=== PATIENT | male | born 1940 | race Caucasian/White ===

== ENCOUNTER 2016-07-10 | Outpatient (CLI) | payer MEDICARE, OTHER | END 2016-07-10 17:41 | disposition short-term general hospital (02) | CPT/HCPCS: A0170; A0425; A0427 ==

== ENCOUNTER 2016-09-19 12:56 | Outpatient (CLI) | payer MEDICARE, OTHER | END 2016-09-19 12:57 | disposition home or self-care (01) | DX: I50.9 Heart failure, unspecified (principal); I51.7 Cardiomegaly; I37.1 Nonrheumatic pulmonary valve insufficiency ==

== ENCOUNTER 2017-06-23 01:15 | Outpatient (CLI) | payer MEDICARE, OTHER | END 2017-06-23 01:16 | disposition critical access hospital (66) | LOC: EMS 01:15 | PROVIDERS: ATTEND Surgery | DX: R55 Syncope and collapse (principal); R41.0 Disorientation, unspecified | CPT/HCPCS: A0425; A0427 ==

== ENCOUNTER 2017-06-23 01:45 | Emergency (ER) | payer MEDICARE, OTHER ==
--- NOTE | 2017-06-23 02:09 | ED Physician Documentation ---
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 He sneezed approximately 35 times and then had a syncopal episode. With his syncopal episode the patient was noted to be drooling his tongue hanging out of his mouth and he was completely unresponsive. When medics arrived he continued to be unresponsive and was somewhat combative not allowing transport. Review of Systems Constitutional: denies: Fever, Chills, Myalgias, Fatigue Eyes: denies: Decreased vision Ears: denies: Ear pain Nose: denies: Congestion Throat: denies: Sore throat Cardiac: denies: Chest pain / pressure, Palpitations Respiratory: denies: Dyspnea, Cough GI: denies: Abdominal Pain, Nausea, Vomiting, Constipation, Diarrhea : denies: Dysuria, Frequency Skin: denies: Rash Musculoskeletal: denies: Neck pain, Back pain, Extremity pain Neurologic: denies: Generalized weakness, Focal weakness, Numbness, Headache, Head injury PD PAST MEDICAL HISTORY - Past Medical History Past Medical History: Yes Cardiovascular: Hypertension, High cholesterol, Coronary artery disease, [place], Atrial fibrillation - Present Medications Home Medications: Ambulatory Orders Medication Instructions Recorded Confirmed Acetaminophen 2 tab PO Q6HR PRN 06/23/17 06/23/17 Aspirin 1 tab PO DAILY 06/23/17 06/23/17 Atorvastatin Calcium 1 tab PO QPM 06/23/17 06/23/17 Furosemide [Lasix] 1 tab PO DAILY 06/23/17 06/23/17 Lisinopril 10 mg PO DAILY 06/23/17 06/23/17 Metoprolol Succinate 1 tab PO DAILY 06/23/17 06/23/17 Nitroglycerin 1 tab PO DAILY PRN 06/23/17 06/23/17 Rivaroxaban [Xarelto] 1 tab PO DAILY 06/23/17 06/23/17 - Allergies Allergies/Adverse Reactions: Allergies Allergy/AdvReac Type Severity Reaction Status Date / Time No Known Drug Allergies Allergy Verified 06/23/17 01:51 - Living Situation Living Arrangement: reports: At home - Social History Does the pt smoke?: No Does the pt drink ETOH?: Yes ETOH Use: Liquor - Family History Family history: reports: Non contributory PD ED PE NORMAL - Vitals Vital signs reviewed: Yes (normal ) - General General: Alert and oriented X 3, No acute distress, Well developed/nourished, Other (intoxicated happy 76 y/o male in no distress) - HEENT HEENT: Atraumatic, PERRL, EOMI - Neck Neck: Supple, no meningeal sign - Cardiac Cardiac: RRR, No murmur - Respiratory Respiratory: No respiratory distress, Clear bilaterally - Abdomen Abdomen: Soft, Non tender - Back Back: No CVA TTP, No spinal TTP - Derm Derm: Normal color, Warm and dry, No rash - Extremities Extremities: No deformity, No edema - Neuro Neuro: Alert and oriented X 3, 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, No motor deficit, No sensory deficit, Normal speech Eye Opening: Spontaneous Motor: Obeys Commands Verbal: Oriented GCS Score: 15 - Psych Psych: Normal mood, Normal affect Results - Vitals Vitals: Vital Signs - 24 hr 06/23/17 06/23/17 06/23/17 01:40 02:10 02:24 Temperature 36.3 C L Heart Rate 69 55 L 52 L Respiratory 20 17 15 Rate Blood Pressure 110/62 105/60 108/63 O2 Saturation 96 98 98 06/23/17 06/23/17 06/23/17 02:57 03:08 04:05 Temperature Heart Rate 50 L 61 50 L Respiratory 15 15 15 Rate Blood Pressure 117/60 127/71 126/63 O2 Saturation 96 100 100 06/23/17 04:20 Temperature 36.5 C Heart Rate 60 Respiratory 18 Rate Blood Pressure 126/63 O2 Saturation 98 Oxygen O2 Source Room air - EKG (time done) 0155 Rate: Rate (enter#) (50) Rhythm: Atrial fibrillation Ischemia: ST depression (V6) Compare to prior EKG: Old EKG unavailable Computer interpretation: Agree with computer - Labs Labs: Laboratory Tests 06/23/17 06/23/17 06/23/17 01:52 01:52 01:52 WBC 10.3 RBC 3.86 L Hgb 12.2 L Hct 35.8 L MCV 92.7 MCH 31.7 H MCHC 34.2 RDW 14.1 Plt Count 217 MPV 8.6 Neut # 6.7 H Lymph # 2.3 [place] # 1.1 H Eos # 0.1 Baso # 0.1 Absolute Nucleated RBC 0.00 Nucleated RBC % 0.0 Sodium 138 Potassium 3.5 Chloride 108 Carbon Dioxide 22 Anion Gap 8.0 BUN 18 Creatinine 1.5 H Estimated GFR (MDRD) 46 L Glucose 87 Calcium 7.8 L Total Bilirubin 0.5 AST 17 ALT 13 Alkaline Phosphatase 68 Troponin I < 0.04 Total Protein 6.8 Albumin 3.7 Globulin 3.1 Albumin/Globulin Ratio 1.2 Lipase 30 Urine Color Urine Clarity Urine pH Ur Specific [place] Urine Protein Urine Glucose (UA) Urine Ketones Urine Occult Blood Urine Nitrite Urine Bilirubin Urine Urobilinogen Ur Leukocyte Esterase Ur Microscopic Review Urine Culture Comments Ethyl Alcohol 205.4 06/23/17 06/23/17 03:05 03:50 WBC RBC Hgb Hct MCV MCH MCHC RDW Plt Count MPV Neut # Lymph # [place] # Eos # Baso # Absolute Nucleated RBC Nucleated RBC % Sodium Potassium Chloride Carbon Dioxide Anion Gap BUN Creatinine Estimated GFR (MDRD) Glucose Calcium Total Bilirubin AST ALT Alkaline Phosphatase Troponin I < 0.04 Total Protein Albumin Globulin Albumin/Globulin Ratio Lipase Urine Color LT. YELLOW Urine Clarity CLEAR Urine pH 5.5 Ur Specific [place] <=1.005 Urine Protein NEGATIVE Urine Glucose (UA) NEGATIVE Urine Ketones NEGATIVE Urine Occult Blood NEGATIVE Urine Nitrite NEGATIVE Urine Bilirubin NEGATIVE Urine Urobilinogen 0.2 (NORMAL) Ur Leukocyte Esterase NEGATIVE Ur Microscopic Review NOT INDICATED Urine Culture Comments NOT INDICATED Ethyl Alcohol - Rads (name of study) 1 veiw chest Radiology: Prelim report reviewed (Impression: 1. Cardiomegaly without overt heart failure. 2. Moderate hiatal hernia.), EMP read indepedently, See rad report Procedures - IVC sono (time) 0200 Bedside IVC sono: IVC measures (cm), IVC collapsed c insp (cm) (complete), Dehydration (after 1 liter in still deficiet est 0.5l) PD MEDICAL DECISION MAKING - ED course Complexity details: reviewed old records, reviewed results, re-evaluated patient , considered differential, d/w patient, d/w family ED course: 76 y/o male with a history of CAD and HTN took his night time medications and went to the bar. He did not eat or drink anything during the day and in the bar he had a sneezing paroxysm followed by a period of bradycardia and hypotension that was accompanied by a decreased LOC. He had a prolonged recovery and here in the ED he has recovered entirely. He is intoxicated with a BA of 205. He had dramatic vital sign abnormalities that have since resolved and he wants to go home. Departure - Departure Disposition: 01 Home, Self Care Clinical Impression: Dehydration Syncope Qualifiers: Syncope type: vasovagal syncope Qualified Code(s): R55 - Syncope and collapse Alcohol intoxication Qualifiers: Complication of substance-induced condition: with unspecified complication Qualified Code(s): F10.929 - Alcohol use, unspecified with intoxication, unspecified Condition: Stable Instructions: ED Dehydration, ED Alcohol Intoxication, ED Syncope Vasovagal Follow-Up: Tiffany Snyder PA-C [Primary Care Provider] - Comments: Today it appears you have committed a republican foul. You were found to be dehydrated and intoxicated. Take your medications as prescribed and eat and drink regularly throughout the day. Avoid excessive alcohol. Discharge Date/Time: 06/23/17 04:35
[2017-06-23 02:15] LABS: BASOPHILS # (AUTO) 0.1 10^3/uL (0.0-0.1); BASOPHILS % (AUTO) 0.6 %; EOSINOPHILS # (AUTO) 0.1 10^3/uL (0.0-0.7); HGB - HEMOGLOBIN 12.2 g/dL (14.0-18.0); LYMPHOCYTES # (AUTO) 2.3 10^3/uL (1.5-3.5); LYMPHOCYTES % (AUTO) 22.5 %; MEAN CORPUSCULAR HEMOGLOBIN 31.7 pg (27.0-31.0); MEAN CORPUSCULAR HGB CONC 34.2 g/dL (32.0-36.0); MEAN CORPUSCULAR VOLUME 92.7 fL (80.0-94.0); MEAN PLATELET VOLUME 8.6 fL (7.4-11.4); MONOCYTES # (AUTO) 1.1 10^3/uL (0.0-1.0); MONOCYTES % (AUTO) 10.9 %; NEUTROPHILS # (AUTO) 6.7 10^3/uL (1.5-6.6); PLT - PLATELET COUNT 217 10^3/uL (130-450); RED BLOOD COUNT 3.86 10^6/uL (4.70-6.10); RED CELL DISTRIBUTION WIDTH 14.1 % (12.0-15.0); WHITE BLOOD COUNT 10.3 x10^3/uL (4.8-10.8)
[2017-06-23 02:24] LABS: ALBUMIN 3.7 g/dL (3.2-5.5); ALBUMIN/GLOBULIN RATIO 1.2 (1.0-2.2); BILIRUBIN,TOTAL 0.5 mg/dL (0.2-1.0); CALCIUM 7.8 mg/dL (8.5-10.3); CREATININE 1.5 mg/dL (0.6-1.2); TOTAL PROTEIN 6.8 g/dL (6.7-8.2)
--- NOTE | 2017-06-23 03:15 | XRAY Preliminary Report ---
Exam: XR CHEST 1 VIEW X-RAY IMPRESSION: 1. Cardiomegaly without overt heart failure. 2. Moderate hiatal hernia. [facility] SITE ID: [id number]
[2017-06-23 03:24] LABS: BILIRUBIN,URINE NEGATIVE (NEGATIVE); GLUCOSE, URINE (UA) NEGATIVE (NEGATIVE); KETONES,URINE (UA) NEGATIVE (NEGATIVE); LEUKOCYTE ESTERASE, URINE NEGATIVE (NEGATIVE); NITRITE,URINE NEGATIVE (NEGATIVE); OCCULT BLOOD,URINE NEGATIVE (NEGATIVE); PH,URINE 5.5 PH (5.0-7.5); PROTEIN,URINE NEGATIVE (NEGATIVE); UROBILINOGEN,URINE 0.2 (NORMAL) E.U./dL (NORMAL)
[2017-06-23 03:25] LABS: CLARITY,URINE CLEAR (CLEAR)
--- NOTE | 2017-06-23 03:33 | XRAY Report ---
EXAM: CHEST RADIOGRAPHY EXAM DATE: 06/23/2017 02:32 AM. CLINICAL HISTORY: Syncope/bradycardia. COMPARISON: None. TECHNIQUE: 1 view. FINDINGS: Lungs/Pleura: No focal opacities evident. No pleural effusion. No pneumothorax. Mediastinum: Mild cardiomegaly. Moderate hiatal hernia. Other: None. IMPRESSION: 1. Cardiomegaly without overt heart failure. 2. Moderate hiatal hernia. [facility] Referring Provider Line: [phone] SITE ID: [id number]
[2017-06-23 04:10] VITALS: BP 126/63
== END 2017-06-23 04:35 | disposition home or self-care (01) ==
LOC: ED 01:45
DX: E86.0 Dehydration (principal); R55 Syncope and collapse; F10.929 Alcohol use, unspecified with intoxication, unspecified; I48.91 Unspecified atrial fibrillation; Y90.7 Blood alcohol level of 200-239 mg/100 ml; I10 Essential (primary) hypertension; E78.00 Pure hypercholesterolemia, unspecified; I25.10 Atherosclerotic heart disease of native coronary artery without angina pectoris; I25.2 Old myocardial infarction; Z79.82 Long term (current) use of aspirin
CPT/HCPCS: 36415; 71045; 80053; 81003; 83690; 84484; 85025; 93005; 99284; 99285; G0480; 80320; 81001; 87086

== ENCOUNTER 2017-12-09 12:29 | Outpatient (CLI) | payer MEDICARE, OTHER | END 2017-12-09 12:30 | disposition home or self-care (01) | LOC: DI 12:29 | PROVIDERS: ATTEND Internal Medicine Cardiovascular Disease | DX: I48.91 Unspecified atrial fibrillation (principal); I51.7 Cardiomegaly; I27.20 Pulmonary hypertension, unspecified | CPT/HCPCS: 93306 ==

== ENCOUNTER 2018-04-25 10:58 | Outpatient (CLI) | payer MEDICARE, OTHER ==
[2018-04-25 11:50] LABS: ALBUMIN/GLOBULIN RATIO 1.1 (1.0-2.2); ALKALINE PHOSPHATASE 84 IU/L (42-121); ALT ALANINE AMINOTRANSFERASE 14 IU/L (10-60); AST ASPARTATE AMINOTRANSFERASE 21 IU/L (10-42); BILIRUBIN,TOTAL 1.1 mg/dL (0.2-1.0); BUN - BLOOD UREA NITROGEN 31 mg/dL (6-20); CALCIUM 8.4 mg/dL (8.5-10.3); CARBON DIOXIDE - CO2 25 mmol/L (21-32); CHLORIDE 102 mmol/L (101-111); CHOL/HDL RATIO 1.9 (<5.0); CHOLESTEROL 120 mg/dL; CREATININE 1.4 mg/dL (0.6-1.2); GFR - MDRD 49 (>89); GLUCOSE 124 mg/dL (70-100); HDL CHOLESTEROL 64 mg/dL; LDL CHOLESTEROL,CALCULATED 47 mg/dL; LDL/HDL RATIO 0.7 (<3.6); SODIUM 136 mmol/L (135-145); TOTAL PROTEIN 7.6 g/dL (6.7-8.2); VLDL CHOLESTEROL 9 mg/dL
== END 2018-04-25 10:59 | disposition home or self-care (01) ==
LOC: LAB 10:58
PROVIDERS: ATTEND Internal Medicine Cardiovascular Disease
DX: Z79.899 Other long term (current) drug therapy (principal)
CPT/HCPCS: 36415; 80053; 80061; 83721

== ENCOUNTER 2019-09-04 16:25 | Day surgery (SDC) | payer MEDICARE, OTHER ==
[2019-09-04] MEDS ORDERED: TETANUS/DIPHTHERIA/PERTUSSIS 0.5 ML SYRINGE IM ONE (16:32)
[2019-09-04] MEDS ORDERED: ceFAZolin 2 GM in SODIUM CHLORIDE 0.9% 100ML 100 ML IV STA (16:35)
--- NOTE | 2019-09-04 16:35 | ED Physician Documentation ---
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 Pain is minimal.) Review of Systems Ten Systems: 10 systems reviewed and negative Constitutional: reports: Reviewed and negative Nose: reports: Reviewed and negative Throat: reports: Reviewed and negative Cardiac: reports: Reviewed and negative PD PAST MEDICAL HISTORY - Past Medical History Cardiovascular: Hypertension, High cholesterol, Coronary artery disease, [place], Atrial fibrillation - Past Surgical History Past Surgical History: Yes Cardiovascular: Cardiac catheterization - Present Medications Home Medications: Ambulatory Orders Medication Instructions Recorded Confirmed Acetaminophen 2 tab PO Q6HR PRN 06/23/17 06/23/17 Furosemide [Lasix] 1 tab PO DAILY 06/23/17 06/23/17 Metoprolol Succinate 50 mg PO BID 06/23/17 09/04/19 Nitroglycerin 1 tab PO DAILY PRN 06/23/17 06/23/17 Rivaroxaban [Xarelto] 20 mg PO QDDINNER 06/23/17 09/04/19 lisinopriL [Lisinopril] 10 mg PO DAILY 06/23/17 06/23/17 Aspirin [Aspirin EC] 81 mg PO DAILY 09/04/19 09/04/19 Atorvastatin Calcium [Lipitor] 80 mg PO QPM 09/04/19 09/04/19 - Allergies Allergies/Adverse Reactions: Allergies Allergy/AdvReac Type Severity Reaction Status Date / Time No Known Drug Allergies Allergy Verified 09/04/19 17:38 - Social History Does the pt smoke?: No Smoking Status: Never smoker Does the pt drink ETOH?: Yes Does the pt have substance abuse?: No - Immunizations Immunizations are current?: Yes - POLST Patient has POLST: No PD ED PE NORMAL - Vitals Vital signs reviewed: Yes - General General: Alert and oriented X 3, No acute distress - HEENT HEENT: PERRL, EOMI - Neck Neck: Supple, no meningeal sign, No bony TTP - Cardiac Cardiac: No gallop, No rub, Other (irreg/irreg) - Respiratory Respiratory: No respiratory distress, Clear bilaterally - Abdomen Abdomen: Normal bowel sounds, Soft, Non tender - Back Back: No CVA TTP, No spinal TTP - Derm Derm: Normal color, Warm and dry - Extremities Extremities: No edema, No calf tenderness / cord, Other (He is almost complete amputation of the fourth finger of the right hand at the level of the DIP and a crushed fifth distal phalanx with nailbed laceration.) - Neuro Neuro: Alert and oriented X 3, Normal speech - Psych Psych: Normal mood, Normal affect Results - Vitals Vitals: Vital Signs - 24 hr 09/04/19 09/04/19 09/04/19 16:35 16:58 18:00 Temperature 36.2 C L Heart Rate 80 82 80 Respiratory 16 16 16 Rate Blood Pressure 188/92 H 188/82 H 175/86 H O2 Saturation 98 95 95 Oxygen O2 Source Room air - EKG (time done) 1724 Rate: Rate (enter#) (70) Rhythm: Atrial fibrillation Rice: LAD Intervals: Normal MO Ischemia: Q waves (anterior), Non specific changes (minor STD II/lat) Computer interpretation: Agree with computer - Labs Labs: Laboratory Tests 09/04/19 09/04/19 09/04/19 16:45 17:30 17:30 WBC 10.0 RBC 4.48 L Hgb 13.7 L Hct 43.0 MCV 96.0 H MCH 30.6 MCHC 31.9 L RDW 14.0 Plt Count 213 MPV 11.8 H Neut # (Auto) 6.6 Lymph # (Auto) 2.4 [place] # (Auto) 0.8 Eos # (Auto) 0.1 Baso # (Auto) 0.0 Absolute Nucleated RBC 0.00 Nucleated RBC % 0.0 PT INR D-Dimer Sodium 139 Potassium 3.7 Chloride 106 Carbon Dioxide 22 Anion Gap 11.0 BUN 26 H Creatinine 1.0 Estimated GFR (MDRD) 72 L Glucose 104 H Calcium 8.5 B-Natriuretic Peptide 232 H 09/04/19 09/04/19 17:30 17:30 WBC RBC Hgb Hct MCV MCH MCHC RDW Plt Count MPV Neut # (Auto) Lymph # (Auto) [place] # (Auto) Eos # (Auto) Baso # (Auto) Absolute Nucleated RBC Nucleated RBC % PT 16.6 H INR 1.5 H D-Dimer < 200.0 L Sodium Potassium Chloride Carbon Dioxide Anion Gap BUN Creatinine Estimated GFR (MDRD) Glucose Calcium B-Natriuretic Peptide - Rads (name of study) Right hand 3 view x-ray Radiology: EMP read contemporaneously (Comminuted fracture of the fourth distal phalanx with near amputation, also a little bit of bone loss of the fifth digit as well.) PD MEDICAL DECISION MAKING - ED course ED course: 79-year-old gentleman with near amputations of the fourth and fifth fingers of the right hand. I do not think the tips would respond to just suturing them back in place and the on-call orthopedic surgeon, Dr. Aguilar was consulted and will take him to the OR for revision of the amputations and closure. He reque sted that we talk with the hospitalist regarding his comorbidities for preop consult and this was done. Departure - Departure Disposition: ED Transfer to [facility] Discharge Date/Time: 09/04/19 18:25
[2019-09-04 17:02] LABS: BASOPHILS % (AUTO) 0.3 %; EOSINOPHILS # (AUTO) 0.1 10^3/uL (0.0-0.7); HGB - HEMOGLOBIN 13.7 g/dL (14.0-18.0); LYMPHOCYTES # (AUTO) 2.4 10^3/uL (1.5-3.5); LYMPHOCYTES % (AUTO) 23.8 %; MEAN CORPUSCULAR HEMOGLOBIN 30.6 pg (27.0-31.0); MEAN CORPUSCULAR HGB CONC 31.9 g/dL (32.0-36.0); MEAN PLATELET VOLUME 11.8 fL (7.4-11.4); MONOCYTES # (AUTO) 0.8 10^3/uL (0.0-1.0); MONOCYTES % (AUTO) 8.3 %; NEUTROPHILS # (AUTO) 6.6 10^3/uL (1.5-6.6); NEUTROPHILS % (AUTO) 66.1 %; PLT - PLATELET COUNT 213 10^3/uL (130-450); RED BLOOD COUNT 4.48 10^6/uL (4.70-6.10)
--- NOTE | 2019-09-04 17:12 | XRAY Report ---
Reason: hand inj Procedure Date: 09/04/2019 Accession Number: [id number] / [id number] Procedure: XR - Hand 3 View RT CPT Code: Final Report FULL RESULT: EXAM: RIGHT HAND RADIOGRAPHY EXAM DATE: 09/04/2019 05:04 PM. CLINICAL HISTORY: Hand inj. COMPARISON: None. TECHNIQUE: 3 views. FINDINGS: Bones: Fourth digit distal phalanx comminuted fracture with separation of soft tissue and bone by 1.6 cm. Joints: Degenerative changes first SKILLED NURSING, first MCP, PIP and DIP joints No subluxations. Soft Tissues: Soft tissue laceration with near amputation fourth digit. Distal peripheral vascular calcifications IMPRESSION: Fourth digit distal phalanx comminuted fracture with separation of soft tissue and bone by 1.6 cm. Near amputation [facility]
--- NOTE | 2019-09-04 17:31 | CONSULTATION NOTE ---
Referring Provider Name of Referring Provider:: Eric Cates MD Consult Date: 09/04/19 Chief Complaint - Chief Complaint Chief Complaint: Asked to evaluate right hand fourth and fifth digit distal partial amputati History of Present Illness - History Obtained From History obtained from: Emergency medicine physician and patient - History of Present Illness HPI Comment/Other: Bill is a 79-year-old [id number] male in his usual state of health until today when he reportedly got his right fourth and fifth digits of his hand caught in the tailgate of his truck while shutting it. He has history of atrial fibrillation. He came into the emergency room was found to have this injury and orthopedic consultation was sought. Patient denies other significant injury at this time. He denies cardiovascular or other systemic symptoms and only complains of his right fourth and fifth digits. Chart review he does have a history of coronary artery disease [place] and hypercholesterolemia as well. History - Past Medical History Cardiovascular: reports: Hypertension, High cholesterol, Coronary artery disease, [place], Atrial fibrillation MRSA Hx?: No - Past Surgical History Cardiovascular: reports: Cardiac catheterization - POLST Patient has POLST: No Meds/Allgy - Home Medications Home Medications: Ambulatory Orders Medication Instructions Recorded Confirmed Acetaminophen 2 tab PO Q6HR PRN 06/23/17 06/23/17 Aspirin 1 tab PO DAILY 06/23/17 06/23/17 Atorvastatin Calcium 1 tab PO QPM 06/23/17 06/23/17 Furosemide [Lasix] 1 tab PO DAILY 06/23/17 06/23/17 Metoprolol Succinate 1 tab PO DAILY 06/23/17 06/23/17 Nitroglycerin 1 tab PO DAILY PRN 06/23/17 06/23/17 Rivaroxaban [Xarelto] 1 tab PO DAILY 06/23/17 06/23/17 lisinopriL [Lisinopril] 10 mg PO DAILY 06/23/17 06/23/17 - Allergies Allergies/Adverse Reactions: Allergies Allergy/AdvReac Type Severity Reaction Status Date / Time No Known Drug Allergies Allergy Verified 06/23/17 01:51 Exam - Vital Signs Vital Signs: Vital Signs x48h Temp Pulse Resp BP Pulse Ox 09/04/19 16:58 82 16 188/82 H 95 09/04/19 16:35 36.2 C L 80 16 188/92 H 98 - Physical Exam Comments/Other: Patient's well-developed well-nourished 79-year-old gentleman cooperative with the exam patient's right upper extremity demonstrates partial injury to both fourth and fifth digits with at all but complete amputation of the distal approximately half of the distal phalanx of the fourth digit and significant crush of an oblique section of the distal aspect of the fifth distal phalanx involving bony injury as well as well as a great majority of the volar pulp. The pulp of the fifth digit that remains is purplish martinez and hue at a relatively distinct oblique angle versus the more proximal skin with good capillary refill. The fifth digit injury goes obliquely off across the nailbed. The fourth digit shows near complete avulsion of the entire nail bed. Patient able to flex and extend more proximally to that with some guarding and pain.Bone is readily visible on both injuries distally. Conclusion/Plan - Diagnosis Diagnosis: Right hand fourth and fifth digit partial distal tip amputations - Plan Plan: Bill is a 79-year-old [id number] male with a partial amputation to his right fourth and fifth digit tips. Talked about the severity of the injuries and the fact that he will lose part of his digits with and without operative intervention. I recommended emergent operative intervention for debridement irrigation and partial amputation to minimize but only short-term risks such as infection but long-term risks as well. We talked about the fact that despite what we do today he still may need additional procedures in the future. He went to risk benefits alternatives of operative and nonoperative treatment occluding but not limited to infection wound problems nerve or blood vessel injury bleeding blood clot blood clot embolus tourniquet complications positioning complications anesthetic complications including but not limited to major cardiovascular neurovascular complications even . He is at increased risk given his cardiac history as well as potential for respiratory illness during the coronavirus pandemic. He would also be at increased risk given his age. Talked about the above and he verbalized their understanding above verbalized wish to proceed with operative intervention. Informed consent is given. Patient will have appropriate preanesthetic medical risk stratification and optimization as necessary and be taken to emergently pending the above to the OR. Patient's questions were answered to verbalize agreement satisfaction the above plan. Proposed procedure right fourth and fifth digit debridement irrigation completion amputation partial, with possible closure. - Lab Results Fish Bones: 09/04/19 16:45 - Diagnostic Imaging Results Diagnostic Imaging Results Comments: Patient had right hand x-rays taken today showing avulsion distal aspects of fourth and fifth distal phalanges. pls see formal report.
--- NOTE | 2019-09-04 17:35 | CONSULTATION NOTE ---
Referring Provider Name of Referring Provider:: Dr. Aguilar Consult Date: 09/04/19 Chief Complaint - Chief Complaint Chief Complaint: injury of right pinky and ring finger caught in tailgate History of Present Illness - Admitted From Admitted From:: ER - History Obtained From History obtained from: pt - History of Present Illness HPI Comment/Other: This is a 79-yrs-old male with a PMH significant for HTN, HLD, chronic Afib with Xarelto, [place], CAD, who present ER complain of right pinky and ring finger injury. pt report his right pinky and ring finger was caught in tailgate today. Dr. Aguilar is the surgeon to plan to have surgery for pt. Hospitalist team was asked to consult for assessment of pt's cardiac risk for the procedure. pt report today he did not take his medications yet, he usually take his meds in the night. he report he had [place] on 2018, afib and he took Xarelto for. He denies chest pain, shortness of breath, palpitations. History - Past Medical History Cardiovascular: reports: Hypertension, High cholesterol, Coronary artery disease, [place], Atrial fibrillation MRSA Hx?: No - Past Surgical History Cardiovascular: reports: Cardiac catheterization - POLST Patient has POLST: No Meds/Allgy - Home Medications Home Medications: Ambulatory Orders Medication Instructions Recorded Confirmed Acetaminophen 2 tab PO Q6HR PRN 06/23/17 06/23/17 Furosemide [Lasix] 1 tab PO DAILY 06/23/17 06/23/17 Metoprolol Succinate 50 mg PO BID 06/23/17 09/04/19 Nitroglycerin 1 tab PO DAILY PRN 06/23/17 06/23/17 Rivaroxaban [Xarelto] 20 mg PO QDDINNER 06/23/17 09/04/19 lisinopriL [Lisinopril] 10 mg PO DAILY 06/23/17 06/23/17 Aspirin [Aspirin EC] 81 mg PO DAILY 09/04/19 09/04/19 Atorvastatin Calcium [Lipitor] 80 mg PO QPM 09/04/19 09/04/19 - Allergies Allergies/Adverse Reactions: Allergies Allergy/AdvReac Type Severity Reaction Status Date / Time No Known Drug Allergies Allergy Verified 09/04/19 17:38 Review of Systems - Constitutional Constitutional: denies: Fatigue, Fever, Chills, Weakness - Eyes Eyes: denies: Pain, Blurred vision, Spots in vision, Field loss, Vision loss - Ears, Nose & Throat Ears, Nose & Throat: denies: Ear pain, Nosebleeds, Nasal congestion - Cardiovascular Cariovascular: reports: Irregular heart rate. denies: Palpitations, Chest pain, Edema, Lightheadedness, Syncope, Exertional dyspnea, Decr. exercise tolerance, Orthopnea - Respiratory Respiratory: denies: Cough, Sputum production, Wheezing, Snoring, Hemoptysis, Orthopnea, SOB at rest, SOB with exertion - Gastrointestinal Gastrointestinal: denies: Abdominal pain, Diarrhea, Black stools, Bloody stools, Nausea, Vomiting - Genitourinary Genitourinary: denies: Dysuria - Musculoskeletal Musculoskeletal: reports: Muscle pain, Muscle aches, Limited range of motion - Integumentary Integumentary: denies: Rash - Neurological Neurological: denies: General weakness, Focal weakness, Headache, Dizziness, Numbness, Abnormal gait, Seizures, Incoordination, Slurred speech - Psychiatric Psychiatric: denies: Suicidal, Delusions, Hallucinations, Homicidal - Endocrine Endocrine: denies: Polyuria - Hematologic/Lymphatic Hematologic/Lymphatic: denies: Anemia Exam - Vital Signs Vital Signs: Vital Signs x48h Temp Pulse Resp BP Pulse Ox 09/04/19 16:58 82 16 188/82 H 95 09/04/19 16:35 36.2 C L 80 16 188/92 H 98 - Physical Exam General Appearance: positive: No acute distress, Alert. negative: Lethargic Eyes Bilateral: positive: Normal inspection ENT: positive: ENT inspection nml Neck: positive: Nml inspection, Thyroid nml, Trachea midline. negative: Stiff neck, Tracheal deviation Respiratory: positive: Chest non-tender, No respiratory distress. negative: Wheezes, Rales, Rhonchi Cardiovascular: positive: No murmur, No gallop, Irregularly irregular. negative: Regular rate & rhythm, Extrasystoles, Tachycardia, Bradycardia, Systolic murmur, Diastolic murmur Peripheral Pulses: positive: 2+ Abdomen: positive: Non-tender, No organomegaly, Nml bowel sounds. negative: Tenderness, Guarding, Rebound Back: positive: Nml inspection Skin: positive: Color nml, Warm, Dry. negative: Cyanosis, Diaphoresis, Pallor Extremities: negative: Calf tenderness Neurologic/Psychiatric: positive: Oriented x3, Sensation nml, Mood/affect nml. negative: Weakness, Sensory loss, Facial droop, Slurred/abnml speech, Depressed mood/affect Conclusion/Plan - Plan Plan: 1, pt has hx of [place], CAD, Afib, HTN and HLD, and now with slight elevated BNP. The revised cardiac risk index for pre-operative risk by Hilton index indicates 10.1% for 30 days risk of , [place], or cardiac arrest, class III risk. EKG reveals afib with HR 70. ECHO is pending, order PT/INR tele monitor nitro SL PRN 2, HTN. Pt's BP is 175/86, HR is 80 now. plan: hydralazine PRN, start on Lisinopril 3, NPO except meds, start IVF of NS on 75cc/h. 4, pain control: Morphine PRN 5, reconcile home meds after pharmacy confirmed - Lab Results Fish Bones: 09/04/19 16:45 09/04/19 17:30
[2019-09-04] MEDS ORDERED: LIDOCAINE 1%-EPI 1:100000 20 ML MDV ONE (17:39)
[2019-09-04] MEDS ORDERED: BUPIVACAINE 0.25% PF 30 ML VIAL ONE (17:39)
--- NOTE | 2019-09-04 17:39 | ANESTHESIA ---
Pre-Anesthesia VS, & Labs - Diagnosis right 4th and 5th finger laceration and near amputation - Procedure right 4th and 5th finger repair Vital Signs: Temp Pulse Resp BP Pulse Ox 36.2 C L 82 16 188/82 H 95 09/04/19 16:35 09/04/19 16:58 09/04/19 16:58 09/04/19 16:58 09/04/19 16:58 Height 5 ft 10 in Weight (kg) 108.862 kg Body Mass Index 34.4 - NPO >8 hours (had muffin at 0900 and "one sip" of gatorade "couple of hours ago. S ays yes to no solid foods since 0900) - Lab Results Current Lab Results: Laboratory Tests 09/04/19 16:45: WBC 10.0, RBC 4.48 L, Hgb 13.7 L, Hct 43.0, MCV 96.0 H, MCH 30.6, MCHC 31.9 L, RDW 14.0, Plt Count 213, MPV 11.8 H, Neut # (Auto) 6.6, Lymph # (Auto) 2.4, Reagan # (Auto) 0.8, Eos # (Auto) 0.1, Baso # (Auto) 0.0, Absolute Nucleated RBC 0.00, Nucleated RBC % 0.0 Fish Bones: 09/04/19 16:45 Home Medications and Allergies Acetaminophen 2 tab PO Q6HR PRN 06/23/17 Aspirin 1 tab PO DAILY 06/23/17 Atorvastatin Calcium 1 tab PO QPM 06/23/17 Furosemide [Lasix] 1 tab PO DAILY 06/23/17 Metoprolol Succinate 1 tab PO DAILY 06/23/17 Nitroglycerin 1 tab PO DAILY PRN 06/23/17 Rivaroxaban [Xarelto] 1 tab PO DAILY 06/23/17 lisinopriL [Lisinopril] 10 mg PO DAILY 06/23/17 Allergies/Adverse Reactions: Allergies Allergy/AdvReac Type Severity Reaction Status Date / Time No Known Drug Allergies Allergy Verified 06/23/17 01:51 Anes History & Medical History - Anesthetic History Anesthesia Complications: reports: No previous complications Family history of Anesthesia Complications: Denies Family history of Malignant Hyperthermia: Denies - Medical History Cardiovascular: reports: Hypertension, High cholesterol, Coronary artery disease, PR (PR in 2017. Denies nay chest pain/chest pressure or SOB since then.), Atrial fibrillation Pulmonary: reports: None Gastrointestinal: reports: None Urinary: reports: None Neuro: reports: None Musculoskeletal: reports: None Endocrine/Autoimmune: reports: None Blood Disorders: reports: None Skin: reports: None Smoking Status: Never smoker Psychosocial: reports: Alcohol (once germain while) - Surgical History Cardiothoracic: Cardiac catheterization Exam General: Alert, Oriented x3, Cooperative, No acute distress Dental: Poor dentition, Other (missing teeth) Mouth Openin Fingerbreadth Neck Mobility: Normal Mallampati classification: III Thyromental Distance: 4-6 cm Respiratory: Lungs clear, Normal breath sounds, No respiratory distress, No accessory muscle use Cardiovascular: Regular rate, Normal S1, Normal S2, No murmurs Abdomen: Normal bowel sounds, Soft, No tenderness, No hepatospenomegaly, No masses Extremities: Other (reports edema in bilateral LE " if i dont take lasix") Neurological: Normal gait, Normal speech, Strength at 5/5 X4 ext, Normal tone, Sensation intact, Cranial nerves 3-12 NL, Reflexes 2+ Mental/Cognitive Status: Alert/Oriented X3, Normal for patient Cognitive Status: Within normal limits Plan Anesthesia Type: General Consent for Procedure(s) Verified and Reviewed: Yes Code Status: Attempt Resuscitation ASA classification: 3-Severe systemic disease Is this case an emergency?: Yes
[2019-09-04 17:45] LABS: CALCIUM 8.5 mg/dL (8.5-10.3)
[2019-09-04] MEDS ORDERED: hydrALAZINE INJ 20 MG/ML VIAL IVP PRN (17:55)
--- NOTE | 2019-09-04 18:12 | XRAY Report ---
Reason: Hx CHF, Pre-op eval Procedure Date: 09/04/2019 Accession Number: [id number] / [id number] Procedure: XR - Chest 1 View X-Ray CPT Code: 79517 Final Report FULL RESULT: EXAM: CHEST RADIOGRAPHY EXAM DATE: 09/04/2019 05:41 PM. CLINICAL HISTORY: Hx CHF, Pre-op eval. COMPARISON: CHEST 1 VIEW 06/23/2017 2:11 AM. TECHNIQUE: 1 view. FINDINGS: Lungs/Pleura: No focal opacities evident. No pleural effusion. No pneumothorax. Elevated left hemidiaphragm with large hiatal hernia Mediastinum: Stable cardiomegaly Other: None. IMPRESSION: 1. Stable cardiomegaly 2. Elevated left hemidiaphragm with large hiatal hernia RADIA
[2019-09-04] MEDS ORDERED: lisinopriL 5 MG TABLET PO SCH (18:18)
[2019-09-04] MEDS ORDERED: MIDAZOLAM 2 MG/2 ML VIAL IVP ONE (18:29)
[2019-09-04] MEDS ORDERED: ACETAMINOPHEN 1,000 MG/100 ML 100 ML IV ONE (18:29)
[2019-09-04] MEDS ORDERED: LACTATED RINGERS 1,000 ML IV ONE (18:29)
[2019-09-04] MEDS ORDERED: GLYCOPYRROLATE 1 MG/5 ML VIAL IVP ONE (18:29)
[2019-09-04] MEDS ORDERED: LIDOCAINE-MPF 2% 5 ML VIAL IM ONE (18:29)
[2019-09-04] MEDS ORDERED: MORPHINE 2 MG/ML CARPUJECT IVP PRN (18:29)
[2019-09-04] MEDS ORDERED: PROPOFOL 200 MG/20 ML VIAL IVP ONE (18:29)
[2019-09-04 18:33] LABS: INR 1.5 (0.8-1.2); PT - PROTHROMBIN TIME 16.6 secs (9.9-12.6)
[2019-09-04] MEDS ORDERED: NITROGLYCERIN SL 0.4 MG TABLET SL PRN (18:33)
[2019-09-04] MEDS ORDERED: BUPIVACAINE 0.25% PF 30 ML VIAL SUBQ ONE ×2 (18:52)
[2019-09-04] MEDS ORDERED: METOPROLOL 5 MG/5 ML VIAL IVP PRN (18:53)
[2019-09-04] MEDS ORDERED: SODIUM CHLORIDE 0.9% 1,000 ML IV SCH ×2 (19:00)
[2019-09-04] MEDS ORDERED: HYDROcod/ACETAM 5/325 MG TABLET PO PRN (19:42)
[2019-09-04] MEDS ORDERED: ONDANSETRON 4 MG/2 ML VIAL IVP PRN (19:42)
--- NOTE | 2019-09-04 19:48 | IMMEDIATE POSTOPERATIVE NOTE ---
Immediate Postoperative Note - Procedure Note Procedure Date: 09/04/19 Pre-Op Diagnosis: Hand fourth and fifth digit partial distal tip amputation Procedure: Right hand fourth and fifth digit debridement irrigation partial amputation partial closure Post-Op Diagnosis: Same Primary Surgeon: Abdullahi PAREKH Roentgenologist: None Anesthesia Type: Local, Moderate sedation Complications: No complications Estimated Blood Loss (in cc): 10 Drains, Catheters, Devices: None Specimens and Cultures: None Plan of Care: Patient tolerated procedure well instrument and sponge counts correct patient transferred recovery room in stable condition. May be discharged when cleared anesthesia protocol. Nonweightbearing right upper extremity elevate at rest antibiotics as prescribed until further postop visit in 4 to 5 days may call orthopedic clinic sooner shou ld problems questions or worsening of his condition arise. Narcotic analgesics for severe pain [id number] Tylenol for mild to moderate pain.
[2019-09-04] MEDS ORDERED: SODIUM CHLORIDE 0.9% 1,000 ML IV ONE (19:58)
[2019-09-04] MEDS ORDERED: HYDROcod/ACETAM 5/325 MG TABLET ONE (20:23)
[2019-09-04 20:37] VITALS: BP 152/87
[2019-09-04] MEDS ORDERED: METOPROLOL SUCCINATE 50 MG TABLET PO SCH (21:00)
--- NOTE | 2019-09-08 08:52 | OPERATIVE REPORT ---
DATE OF SERVICE: 09/04/2019 Physician: Atif Aguilar MD SURGEON: Atif Aguilar MD DIRECTOR PUBLIC SERVICE: None. ANESTHESIOLOGIST: Bertrand Washington CRNA ANESTHESIA TYPE: Sedation and local anesthesia, 0.25% Marcaine plain, 20 mL. ESTIMATED BLOOD LOSS: Less than 10 mL. PREOPERATIVE DIAGNOSIS: Right hand fourth and fifth digit partial distal tip amputation. POSTOPERATIVE DIAGNOSIS: Right hand fourth and fifth digit partial distal tip amputation. PROCEDURES PERFORMED: Right hand fourth and fifth digit debridement and irrigation, partial amputation, and partial closure. INTRAOPERATIVE COMPLICATIONS: None noted. HISTORY OF PRESENT ILLNESS AND INDICATIONS: Patient is a 79-year-old gentleman who crushed his right fourth and fifth digits in the tailgate of a vehicle today. He had partial amputations involving the distal tip fractures of the distal phalanges, right fourth and fifth digit. He is indicated for operative intervention. Please see consultation outlining additional risks, benefits, and alternatives reviewed. We did discuss risks, benefits, alternatives including, but not limited to infection, wound problems, need for additional procedures, failure to "cure" the patient's problem, need for additional referral to a hand specialist and additional procedures, bleeding, blood loss, tourniquet complications, positioning complications, anesthetic complications, dysfunction in any manner pain, stiffness, worsening of his condition, loss of additional portions of his digit, major cardiovascular and neurovascular complications, even . We talked about the fact that there may be other risks not addressed here and that his function and appearance would most certainly not be normal in the future to some degree. He verbalized understanding of the above and verbalized wish to proceed with operative treatment. Informed consent was given. DESCRIPTION OF PROCEDURE: On 09/04/2019, patient was identified in the emergency room and then in the preoperative area. He is signed. He was given preoperative antibiotics previously and then brought to the operating room. He was sedated, placed supine on the operating table. Head, neck, and extremities placed in anatomically comfortable and safe positions to avoid peripheral nerve stretch and compression, appropriate coronavirus and respiratory precautions were taken. Patient's right upper extremity was then prepped with Betadine on the distal tips and then Hibiclens in the hand, followed by alcohol, followed by ChloraPrep, and then the hand and upper extremities after Betadine on the injured tips. At this point, after prepping and draping was accomplished under the usual conditions. At this time, surgical pause identifies right fourth and fifth digits. At this time, the right third digit was all but completely amputated and this is completed. There is noted to be neurovascular injury all but complete and only soft tissue otherwise holding the distal tip on, this is ligated. Hemostasis is achieved. The distal tip of the fourth distal phalange is rongeured back, but with an attempt to maintain flexion and extensor insertions. As such, as much as needed to allow closure is rongeured, but as much as possible is left. The soft tissues are sharply debrided and then curetted and copiously irrigated. At this point, sutures are placed purposely somewhat loose to allow drainage to avoid seroma collection, and the distal tip, after being incised to a fresh edge, is closed over the bone essentially transversely. This is with the goal of having secondary intention and all soft tissue is covering the bone and the DIP joint and flexor extension attachments are maintained. Attention to the fifth digit shows oblique laceration, though compared to previous examination, there is actually good coloration of the distal tip with capillary refill less than 2 seconds in this portion. As such, it was decided to attempt to save the distal tip, given the vascular supply. As such, after debridement using sharp at the edges and curetting and rongeuring the small fragment of bone that had fractured away, this was copiously irrigated and then nylon sutures are used for closure to reattach the distal soft tissue covering the bone. Flexor and extensor tendons are left in their insertions. The nail bed has 2 PDS sutures placed and after debridement of the patient's nail, which was essentially completely off and cleaning of this in Betadine, it is placed to maintain the eponychial fold and sutured in place with a PDS suture. At this point, there is good integrity of the repaired portion of soft tissue, and at this point this is again irrigated. As the head of the fourth digit, these then had Xeroform dressing placed on the open areas. It should be noted that a digital block was performed prior to starting the procedure using 0.25% plain Marcaine. This was involving the fourth and fifth digits. Additional injections were given to complete coverage of the block. At this point after dressing the wounds with Xeroform dressing, a very loose cotton gauze is placed over the tip. Cotton gauzes are placed very loosely in the interdigital spaces and then a Esvin wrap is placed loosely around the digits allowing for complete freedom of movement of the dressing, such that it would not be constricting, then a volar plaster splint is placed to protect beyond the tips of the fourth and fifth digits. Mau wrap is applied. Patient tolerated the procedure well. Instrument and sponge counts are correct. The patient is transferred to recovery room in stable condition. He will be on perioperative antibiotics until his postop visit in 4-5 days. He has analgesic narcotics and use them as directed. He would notify us prior to followup visit should problems or questions arise. Patient was transferred to the recovery room in stable condition. TD: 09/08/2019 08:15 VICKI
== END 2019-09-04 17:20 | disposition home or self-care (01) ==
LOC: ED 16:25 → SDS 17:19
PROVIDERS: ATTEND Orthopaedic Surgery Sports Medicine
DX: S68.126A Partial traumatic metacarpophalangeal amputation of right little finger, initial encounter (principal); S68.124A Partial traumatic metacarpophalangeal amputation of right ring finger, initial encounter; E78.5 Hyperlipidemia, unspecified; I48.20 Chronic atrial fibrillation, unspecified; Z79.01 Long term (current) use of anticoagulants; I10 Essential (primary) hypertension; I25.2 Old myocardial infarction; I25.10 Atherosclerotic heart disease of native coronary artery without angina pectoris
CPT/HCPCS: 11044; 26236; 36415; 71045; 73130; 80048; 83880; 84484; 85025; 85379; 85610; 90471; 90715; 93005; 96374; 99284; 99285; A9270; J0131; J7120

== ENCOUNTER 2020-03-03 11:28 | Outpatient (CLI) | payer MEDICARE ==
[2020-03-03 15:20] LABS: BASOPHILS % (AUTO) 0.4 %; EOSINOPHILS # (AUTO) 0.1 10^3/uL (0.0-0.7); EOSINOPHILS % (AUTO) 1.6 %; HGB - HEMOGLOBIN 10.9 g/dL (14.0-18.0); LYMPHOCYTES % (AUTO) 24.3 %; MEAN CORPUSCULAR HEMOGLOBIN 27.6 pg (27.0-31.0); MEAN CORPUSCULAR HGB CONC 30.5 g/dL (32.0-36.0); MEAN CORPUSCULAR VOLUME 90.4 fL (80.0-94.0); MONOCYTES # (AUTO) 0.7 10^3/uL (0.0-1.0); MONOCYTES % (AUTO) 9.1 %; NEUTROPHILS # (AUTO) 5.1 10^3/uL (1.5-6.6); NEUTROPHILS % (AUTO) 64.1 %; PLT - PLATELET COUNT 191 10^3/uL (130-450); RED BLOOD COUNT 3.95 10^6/uL (4.70-6.10); RED CELL DISTRIBUTION WIDTH 22.7 % (12.0-15.0)
[2020-03-03 17:18] LABS: PLATELET ESTIMATE, MANUAL NORMAL (130-450,000) (NORMAL); PLATELET MORPHOLOGY NORMAL APPEARANCE (NORMAL)
== END 2020-03-03 11:29 | disposition home or self-care (01) ==
LOC: LAB.S 11:28
PROVIDERS: ATTEND Internal Medicine
DX: D50.9 Iron deficiency anemia, unspecified (principal)
CPT/HCPCS: 36415; 85025

== ENCOUNTER 2021-01-25 15:50 | Outpatient (CLI) | payer MEDICARE | END 2021-01-25 23:59 | disposition home or self-care (01) | LOC: COV 15:50 | PROVIDERS: ATTEND Internal Medicine Gastroenterology | DX: Z01.812 Encounter for preprocedural laboratory examination (principal); Z20.822 Contact with and (suspected) exposure to COVID-19 ==

== ENCOUNTER 2022-02-09 11:21 | Outpatient (CLI) | payer MEDICARE ==
[2022-02-09 11:46] LABS: ALBUMIN 4.1 g/dL (3.2-5.5); ALBUMIN/GLOBULIN RATIO 1.1 (1.0-2.2); BILIRUBIN,TOTAL 0.8 mg/dL (0.2-1.0); CALCIUM 9.2 mg/dL (8.5-10.3); CREATININE 1.3 mg/dL (0.6-1.2); POTASSIUM 3.9 mmol/L (3.5-5.0)
--- NOTE | 2022-02-09 15:21 | CT Report ---
PROCEDURE: CHEST W INDICATIONS: LUNG NODULE CONTRAST: IV CONTRAST: Optiray 320 ml: 100 PO CONTRAST: *NO PO CONTRAST TECHNIQUE: After the administration of intravenous contrast, 1 mm axial images were acquired from the pulmonary apices through the posterior costophrenic angles. Axial 5 mm soft tissue kernel reconstructions were performed as well as 8 mm axial MIP and coronal and sagittal 5 mm reformations. For radiation dose reduction, the following was used: automated exposure control, adjustment of mA and/or kV according to patient size. COMPARISON: Chest radiograph dated 06/23/2017. FINDINGS: Image quality: Excellent. Lungs and pleura: No acute air space opacities. No pleural effusions or pneumothorax. Central and peripheral airways are patent and normal in caliber. No suspicious pulmonary nodules. There are a fe w scattered calcified pulmonary nodules seen in the bilateral hemithoraces. The largest measures appr oximately 8 mm in size and is noted over the periphery of the left upper lobe. This correlates with p ulmonary nodule seen in the lateral left midlung zone on comparison radiograph. No septal thickening or nodularity. There is minimal bibasilar atelectasis with compressive atelectasis adjacent to large hiatal hernia seen in the left hemithorax. Mediastinum: Heart size is enlarged. No pericardial effusion. Moderate atherosclerotic coronary art amberly calcifications. No mediastinal or hilar adenopathy by size criteria. Thoracic aorta and central pulmonary arteries are normal in size with moderate amount of apical scarring calcifications. Esopha donnie is normal in caliber. Large hiatal hernia. Bones and chest wall: No suspicious bony lesions. No vertebral body compression fractures. No axil jasbir or supraclavicular adenopathy by size criteria. The thyroid is normal in size and there are no incidental findings.. Abdomen: Hepatic steatosis. Other visualized upper abdominal solid organs appear normal. Upper abdom inal bowel loops are normal in caliber. IMPRESSION: 1. CT chest without acute cardiopulmonary abnormalities. 2. Multiple scattered calcified pulmonary nodules compatible with calcified granulomas. Largest is se en in the periphery of the left upper lobe and correlates with previously seen pulmonary nodule on co mparison radiograph. 3. Atherosclerosis. 4. Mild cardiomegaly. 5. Large hiatal hernia with associated compressive atelectasis. CLINICAL RECOMMENDATION STATEMENTS: In patients <35 years with an ITN detected on CT, MRI, or extrathyroidal ultrasound, the Committee re commends further evaluation with dedicated thyroid ultrasound if the nodule is "e1 cm and has no susp icious imaging features, and if the patient has normal life expectancy. In patients "e35 years with an ITN detected on CT, MRI, or extrathyroidal ultrasound, the Committee r ecommends further evaluation with dedicated thyroid ultrasound if the nodule is "e1.5 cm and has no s uspicious imaging features, and if the patient has normal life expectancy. (ACR, 2014) Reviewed by: Eduardo Levin MD on 02/09/2022 3:19 PM PDT Approved by: Eduardo Levin MD on 02/09/2022 3:19 PM PDT Station ID: [id number]
== END 2022-02-09 11:22 | disposition home or self-care (01) ==
LOC: LAB 11:21
PROVIDERS: ATTEND Internal Medicine
DX: I50.9 Heart failure, unspecified (principal); R91.8 Other nonspecific abnormal finding of lung field; I51.7 Cardiomegaly; K44.9 Diaphragmatic hernia without obstruction or gangrene; J98.11 Atelectasis; I25.10 Atherosclerotic heart disease of native coronary artery without angina pectoris
CPT/HCPCS: 36415; 71260; 80053; Q9967